=== PATIENT | female | born 1985 | race Caucasian/White ===

== ENCOUNTER 2017-05-17 09:02 | Emergency (ER) | payer OTHER ==
[~2017-05-17] VITALS: Ht 157.5 cm; Wt 45.8 kg
[2017-05-17 09:19] VITALS: Ht 157.5 cm; Wt 45.8 kg
[2017-05-17 10:56] VITALS: BP 103/65
== END 2017-05-17 10:56 | disposition home or self-care (01) ==
LOC: ED 09:02
DX: N39.0 Urinary tract infection, site not specified (principal); J45.909 Unspecified asthma, uncomplicated; F17.200 Nicotine dependence, unspecified, uncomplicated
CPT/HCPCS: J1885; Q0092

== ENCOUNTER 2017-09-30 08:11 | Emergency (ER) | payer OTHER ==
[~2017-09-30] VITALS: Ht 157.5 cm; Wt 49.6 kg
[2017-09-30 08:13] VITALS: Ht 157.5 cm; Wt 49.6 kg
[2017-09-30 09:39] VITALS: BP 121/92
== END 2017-09-30 10:32 | disposition home or self-care (01) ==
LOC: ED 08:11
DX: J45.901 Unspecified asthma with (acute) exacerbation (principal)
CPT/HCPCS: J7512; J7613; J7644; Q0092